=== PATIENT | female | born 1975 | race Two or more races ===

== ENCOUNTER → 2018-07-23 | Outpatient (CLI) | payer OTHER | END | disposition home or self-care (01) | LOC: CFH 10:00 | PROVIDERS: ATTEND Psychiatry & Neurology Neurology | DX: J32.0 Chronic maxillary sinusitis (principal); J34.2 Deviated nasal septum; J34.89 Other specified disorders of nose and nasal sinuses | CPT/HCPCS: 70220; 70551 ==